=== PATIENT | female | born 1960 | race Caucasian/White ===

== ENCOUNTER → 2018-05-23 | Outpatient (CLI) | payer OTHER ==
[~2018-05-23] MED LIST: ATIVAN0.5 MG PO; BUSPAR DIVIDOSE15 MG PO; BUSPAR5 MG PO; CEFTIN 250250 MG/TAB PO; CIPRO 500MG TA500 MG PO; CYMBALTA 20MG20 MG PO; DARVOCET-N-101 UDTAB PO; FLONASE NASAL S16 GM NS; FLORASTOR250 MG PO; LEVBID0.375 MG PO; LEXAPRO 5MG5 MG PO; LIDODERM PATCH TP; LINZESS145CAP; LYRICA 75MG CAP75 MG PO; LYRICA25 MG PO; MAXALT MLT5 MG PO; MAXALT5 MG PO; MOTRIN 800800 MG/TAB PO; NEXIUM 20MG CAP20 MG PO; NEXIUM 20MG20 MG PO; PAMELOR10 MG PO; PERCOCET 325 MG1 TA2 PO; PHAZYME PO; PHENERGAN 25 TA25 MG PO; PRENATAL VITAMI1 TA5 PO; PRENATAL1 TA2 PO; PYRIDIUM200 M1 PO; SINGULAIR 110 MG/TAB PO; ULTRAM 50MG TAB50 MG; ULTRAM 50MG TAB50 MG PO; VITAMIN D; VITAMIN D1000 IU PO; VITAMIN D2000 I1 PO; ZYRTEC 10MG; ZYRTEC 10MG10 MG PO; [UNRECOGNIZED DRUG - OTHER]; [UNRECOGNIZED DRUG - OTHER] PO
== END ==
LOC: COL.RAD 07:30
DX: R94.5 Abnormal results of liver function studies (principal)

== ENCOUNTER → 2018-06-13 | Outpatient (CLI) | payer OTHER ==
[2018-06-13] VITALS (12 sets, daily range): BP systolic 92–137; BP diastolic 63–91; PULSE 68–93
[~2018-06-13] MED LIST changes: +AZO-CRANBERRY450 MG; +CENTRUM SILVER1 TAB; +CITRUCEL WITH500 MG PO; +CUTIVATE0.05% TOP; +DITROPAN XL10 MG PO; +GINGER500 MG PO; +GINSENG; +MURO 128 5% OPH15 ML OP; +NEURONTIN300 MG/CAP PO; +OMEGA-3 FISH1000 MG PO; +PROBIOTIC FORMU1 CAP PO; +REFRESH PLUS 00.4 M1 OP; +RESTASIS MULTI5.5 ML OP; +RETIN-A CR0.05 20GM TP; +SIMETHICONE80 MG PO; +ZOVIRAX400 MG PO
[2018-06-13 12:52] LABS: INR 1.2 (0.8-3.0); PROTHROMBIN TIME 13.2 SECONDS (9.7-12.8)
== END ==
LOC: COL.RAD 06:30
PROVIDERS: Physician Assistant
DX: R94.5 Abnormal results of liver function studies (principal)
CPT/HCPCS: 14444

== ENCOUNTER → 2019-10-15 | Outpatient (CLI) | payer OTHER | LOC: ZCOL.LAB 17:43 | DX: K75.81 Nonalcoholic steatohepatitis (NASH) (principal) ==

== ENCOUNTER 2021-10-15 13:54 | Emergency (ER) | payer OTHER ==
[~2021-10-15] VITALS: Ht 160 cm; Wt 76.4 kg
[2021-10-15 14:02] VITALS: TEMP 99.1
[2021-10-15 15:14] VITALS: BP 126/79; PULSE 86
== END 2021-10-15 15:18 | disposition home or self-care (01) ==
LOC: COL.ER 13:54
DX: S90.31XA Contusion of right foot, initial encounter (principal); Z28.310 Unvaccinated for COVID-19; W20.8XXA Other cause of strike by thrown, projected or falling object, initial encounter; Y99.0 Civilian activity done for income or pay